=== PATIENT | male | born 1945 | race Caucasian/White ===

== ENCOUNTER → 2016-11-07 | Outpatient (CLI) | payer OTHER ==
[~2016-11-07] MED LIST: ACET-1256 PO; ALPR1TAB3 PO; ASPI325T39 PO; ATEN50TA8 PO; HYDR-3785 PO; INSDGIPEN SC; INSDGIPEN SQ; LMC25 PO; LOSA100T33 PO; LPT/20 PO; NVLGI SC; ONDA4TAB10 PO
--- NOTE | 2016-11-07 12:20 | DIAGNOSTIC IMAGING REPORT ---
ANKLE BRACHIAL INDEX LIMITED ultrasound CLINICAL HISTORY: CLAUDICATION COMPARISON STUDY: None. FINDINGS: The right ankle-brachial index measured with the posterior to artery was 0.9 and the dorsalis pedis artery was 1.15. The left ankle-brachial index measured with the posterior to artery was 1.18 and the dorsalis pedis artery was 1.13. IMPRESSION: The right ankle-brachial index measured between 0.89 and 1.15. The left ankle-brachial index measured between 1.18 and 1.13 Electronically signed by: Fito Collins M.D. 11/07/2016 12:19 PM Dictated Date/Time: 11/07/2016 12:18 PM
--- NOTE | 2016-11-07 14:16 | DIAGNOSTIC IMAGING REPORT ---
LUMBAR SPINE MRI HISTORY: Pain LUMB AGE TECHNIQUE: Multiplanar multisequence MRI of the lumbar spine was performed without the use of contrast. COMPARISON: None. FINDINGS: For the purpose of the report the L5-S1 disc space will be located on axial image 27 of 30. Signal characteristics of the vertebral bodies are unremarkable throughout. Mild disc desiccation noted throughout the entire lumbar region. L1-L2: Minimal broad-based disc bulge. Minimal impact upon the anterior thecal sac. L2-L3: No significant central canal or neural foraminal narrowing. L3-L4: No significant central canal or neural foraminal narrowing. L4-L5: Significant multifactorial spinal stenosis. Mild broad-based disc herniation. Moderate to rather significant narrowing of the neuroforamina bilaterally. Hypertrophic change and ligamentum flavum. L5-S1: Mild narrowing right neuroforamina secondary to hypertrophic change right lateral facet. IMPRESSION: 1. Multifactorial spinal stenosis L4-L5. 2. Minimal disc bulge L1-L2. 3. Mild narrowing right neuroforamina at L5-S1. Electronically signed by: Dong Tate M.D. 11/07/2016 2:14 PM Dictated Date/Time: 11/07/2016 1:47 PM
== END | disposition home or self-care (01) ==
LOC: C.ULTR 11:30
PROVIDERS: ATTEND Physician Assistant
DX: I73.9 Peripheral vascular disease, unspecified (principal); M54.5 Low back pain; M48.06 Spinal stenosis, lumbar region